=== PATIENT | female | born 1975 | race African-American/Black ===

== ENCOUNTER 2021-07-13 18:27 | Inpatient (IN) ==
[2021-07-13] MEDS ORDERED: ONDANSETRON 4 MG/2 ML VIAL ONE (19:19)
[2021-07-13] MEDS ORDERED: MORPHINE 2 MG/1 ML SYRINGE ONE (19:19)
[2021-07-13 19:21] LABS: Bilirubin,Urine Negative (Negative); Blood, Urine Small mg/dL (Negative); Glucose,Urine (UA) Negative (Negative); Ketones,Urine Negative (Negative); Mucus,Urine Many /LPF (Occasional); Nitrite,Urine Negative (Negative); Protein,Urine 30 MG/DL; RBC,Urine 8 /HPF (0-4); Squamous Epithelial Cell,Urine Occasional /HPF (0-10); Urine Appearance CLEAR (Clear); Urine Color Yellow (Yellow); Urine Specific Gravity 1.028 (1.001-1.035); Urine Urobilinogen < 2.0 EU/DL (0.2-1.0)
[2021-07-13] MEDS ORDERED: SODIUM CHLORIDE 0.9% 1,000 ML IV STA (19:22)
[2021-07-13] MEDS ORDERED: ONDANSETRON 4 MG/2 ML VIAL IV STA (19:22)
[2021-07-13] MEDS ORDERED: MORPHINE 2 MG/1 ML SYRINGE IV STA ×2 (19:22→20:05)
[2021-07-13 19:25] LABS: Basophils # 0.1 10*3/uL (0.0-0.2); Basophils % 0.2 % (0.0-0.8); Hematocrit 41.2 VOL% (35.7-47.0); Hemoglobin 13.3 GM/DL (12.0-16.0); Immature Granulocytes % 0.5 %; Immature Granulocytes Absolute 0.13 #; Lymphocytes # 2.2 10*3/uL (1.4-4.0); Lymphocytes % 8.4 % (21.3-54.2); Mean Corpuscular HGB Conc 32.3 GM/DL (32-36); Mean Corpuscular Volume 90.5 FL (87-102); Monocytes % 7.4 % (1.7-12.7); Neutrophils % 83.5 % (38.7-73.9); Platelet Count 242 T/CUMM (130-400); Red Blood Count 4.55 MC/CUMM (3.8-5.5); Red Cell Distribution Width 12.6 % (9.3-17.3); White Blood Count 25.9 T/CUMM (4-12)
[2021-07-13 19:45] LABS: Albumin 4.1 G/DL (3.4-5.0); Bilirubin,Total 0.9 MG/DL (0.20-1.00); Calcium 9.5 MG/DL (8.5-10.1); Osmolality,Calculated 273.8 MOS/KG (273-304); Potassium 3.4 MMOL/L (3.5-5.1); Total Protein 8.5 G/DL (6.4-8.2)
[2021-07-13] MEDS ORDERED: PIPERACILLIN/TAZOBACTAM 3,375 MG in SODIUM CHLORIDE 0.9% 100 ML IV STA (19:46)
[2021-07-13] MEDS ORDERED: HYDROmorphone 2 MG/1 ML VIAL IV ONE (21:25)
[2021-07-13] MEDS ORDERED: HYDROmorphone 2 MG/1 ML VIAL IV PRN (21:27)
[2021-07-13] MEDS ORDERED: ACETAMINOPHEN 325 MG TABLET PO PRN (21:27)
[2021-07-13] MEDS ORDERED: ONDANSETRON 4 MG/2 ML VIAL IV PRN (21:27)
[2021-07-13 21:56] LABS: Band Neutrophils 1 % (0-10); Lymphocytes 6 % (20-55); Platelet Estimate Normal; Segmented Neutrophils 88 % (50-85); Total Cells Counted 100
[2021-07-13] MEDS ORDERED: INFLUENZA VIRUS VACCINE 0.5 ML SYRINGE IM ONE (22:28)
[2021-07-13] MEDS: PIPERACILLIN/TAZOBACTAM 3,375 MG in SODIUM CHLORIDE 0.9% 100 ML IV SCH (22:30)
[2021-07-13] MEDS: LACTATED RINGERS 1,000 ML IV SCH (22:49)
[2021-07-14] MEDS: PIPERACILLIN/TAZOBACTAM 3,375 MG in SODIUM CHLORIDE 0.9% 100 ML IV SCH ×3 (05:30→21:11)
[2021-07-14 07:01] LABS: Basophils % 0.2 % (0.0-0.8); Eosinophils % 0.1 % (0.00-10.9); Hematocrit 36.4 VOL% (35.7-47.0); Hemoglobin 11.7 GM/DL (12.0-16.0); Immature Granulocytes % 0.5 %; Lymphocytes % 10.3 % (21.3-54.2); Mean Corpuscular HGB Conc 32.1 GM/DL (32-36); Mean Corpuscular Volume 93.3 FL (87-102); Mean Platelet Volume 11.8 FL (9.6-12.0); Monocytes % 7.8 % (1.7-12.7); Neutrophils % 81.1 % (38.7-73.9); Platelet Count 199 T/CUMM (130-400); Red Cell Distribution Width 12.7 % (9.3-17.3); White Blood Count 19.1 T/CUMM (4-12)
[2021-07-14 07:21] LABS: Calcium 8.4 MG/DL (8.5-10.1); Osmolality,Calculated 277.4 MOS/KG (273-304); Potassium 3.4 MMOL/L (3.5-5.1)
[2021-07-14] MEDS ORDERED: ONDANSETRON 4 MG/2 ML VIAL ONE (07:49)
[2021-07-14] MEDS ORDERED: MIDAZOLAM 2 MG/2 ML VIAL ONE (07:49)
[2021-07-14] MEDS ORDERED: LIDOCAINE 2% 5 ML VIAL ONE (07:49)
[2021-07-14] MEDS ORDERED: propofoL 200 MG/20 ML VIAL IV ONE (07:49)
[2021-07-14] MEDS ORDERED: fentaNYL 100 MCG/2 ML VIAL ONE ×2 (07:49→09:35)
[2021-07-14] MEDS ORDERED: ROCURONIUM 50 MG/5 ML VIAL IV ONE (07:49)
[2021-07-14] MEDS ORDERED: BUPIVACAINE MPF 0.25% 30 ML VIAL ONE (07:52)
[2021-07-14] MEDS ORDERED: TISSUE ADHESIVE 1 EACH APPLICATOR TOP ONE (07:52)
[2021-07-14] MEDS ORDERED: LIDOCAINE 1%/EPI INJ 20 ML VIAL ONE (07:52)
[2021-07-14] MEDS ORDERED: FAMOTIDINE 20 MG/2 ML VIAL IV ONE (07:55)
[2021-07-14] MEDS ORDERED: SCOPOLAMINE 1.5 MG PATCH TRANSDERM ONE (08:28)
[2021-07-14] MEDS ORDERED: METOCLOPRAMIDE 10 MG/2 ML VIAL ONE (08:47)
[2021-07-14] MEDS ORDERED: PHENYLEPHRINE 1 MG/10 ML SYRINGE IV ONE (08:48)
[2021-07-14] MEDS ORDERED: ACETAMINOPHEN INJ 1,000 MG/100 ML VIAL IV ONE (08:48)
[2021-07-14] MEDS ORDERED: DEXAMETHASONE 4 MG/1 ML VIAL ONE (08:48)
[2021-07-14] MEDS ORDERED: KETOROLAC 30 MG/1 ML VIAL ONE (08:48)
[2021-07-14] MEDS ORDERED: SUGAMMADEX 200 MG/2 ML VIAL IV ONE (08:53)
[2021-07-14] MEDS ORDERED: SEVOFLURANE 1 UNIT/15 MINUTE INH ONE (09:21)
[2021-07-14] MEDS ORDERED: BISACODYL 5 MG TABLET PO PRN (11:51)
[2021-07-14] MEDS: PANTOPRAZOLE 40 MG TABLET PO SCH (12:32)
[2021-07-14] MEDS: LACTATED RINGERS 1,000 ML IV SCH (12:36)
[2021-07-14] MEDS: ONDANSETRON 4 MG/2 ML VIAL IV PRN ×2 (13:10→17:06)
[2021-07-14] MEDS: KETOROLAC 15 MG/1 ML VIAL IV PRN (16:41)
[2021-07-14] MEDS: HYDROmorphone 2 MG/1 ML VIAL IV PRN (21:12)
[2021-07-14] MEDS: diphenhydrAMINE CAP 25 MG CAPSULE PO SCH (22:03)
[2021-07-15] MEDS: LACTATED RINGERS 1,000 ML IV SCH ×3 (00:10→18:46)
[2021-07-15] MEDS: ONDANSETRON 4 MG/2 ML VIAL IV PRN ×3 (02:00→13:36)
[2021-07-15] MEDS: KETOROLAC 15 MG/1 ML VIAL IV PRN ×3 (02:41→18:19)
[2021-07-15 05:35] LABS: Basophils % 0.1 % (0.0-0.8); Eosinophils % 0.1 % (0.00-10.9); Hematocrit 31.2 VOL% (35.7-47.0); Hemoglobin 9.9 GM/DL (12.0-16.0); Immature Granulocytes % 0.9 %; Immature Granulocytes Absolute 0.19 #; Lymphocytes # 2.2 10*3/uL (1.4-4.0); Lymphocytes % 10.6 % (21.3-54.2); Mean Corpuscular HGB Conc 31.7 GM/DL (32-36); Mean Corpuscular Volume 92.3 FL (87-102); Mean Platelet Volume 12.1 FL (9.6-12.0); Monocytes % 7.8 % (1.7-12.7); Neutrophils % 80.5 % (38.7-73.9); Platelet Count 176 T/CUMM (130-400); Red Blood Count 3.38 MC/CUMM (3.8-5.5); Red Cell Distribution Width 12.5 % (9.3-17.3); White Blood Count 20.8 T/CUMM (4-12)
[2021-07-15 05:50] LABS: Calcium 8.3 MG/DL (8.5-10.1); Osmolality,Calculated 283.1 MOS/KG (273-304); Potassium 3.4 MMOL/L (3.5-5.1)
[2021-07-15 05:58] LABS: Hypochromasia Slight; Lymphocytes 6 % (20-55); Nucleated Red Blood Cells 1 (0-5); Platelet Estimate Normal; Segmented Neutrophils 91 % (50-85); Total Cells Counted 100
[2021-07-15] MEDS: HYDROmorphone 2 MG/1 ML VIAL IV PRN ×3 (06:04→20:45)
[2021-07-15] MEDS: PIPERACILLIN/TAZOBACTAM 3,375 MG in SODIUM CHLORIDE 0.9% 100 ML IV SCH ×3 (06:05→20:45)
[2021-07-15] MEDS: PANTOPRAZOLE 40 MG TABLET PO SCH (08:56)
[2021-07-15] MEDS ORDERED: POTASSIUM CHLORIDE 20 MEQ TABLET PO ONE (11:00)
[2021-07-15] MEDS ORDERED: LOSARTAN 25 MG TABLET PO SCH (12:00)
[2021-07-15] MEDS ORDERED: hydroCHLOROthiazide 12.5 MG CAPSULE PO SCH (12:00)
[2021-07-15] MEDS ORDERED: PROMETHAZINE 25 MG TABLET PO ONE (17:26)
[2021-07-15] MEDS: diphenhydrAMINE CAP 25 MG CAPSULE PO SCH (20:36)
[2021-07-16] MEDS: LACTATED RINGERS 1,000 ML IV SCH (00:50)
[2021-07-16] MEDS: KETOROLAC 15 MG/1 ML VIAL IV PRN ×2 (03:06→09:46)
[2021-07-16] MEDS: ONDANSETRON 4 MG/2 ML VIAL IV PRN (03:11)
[2021-07-16 05:16] LABS: Basophils % 0.2 % (0.0-0.8); Eosinophils # 0.1 10*3/uL (0.0-0.87); Eosinophils % 0.9 % (0.00-10.9); Hematocrit 31.8 VOL% (35.7-47.0); Hemoglobin 10.3 GM/DL (12.0-16.0); Immature Granulocytes % 0.5 %; Immature Granulocytes Absolute 0.06 #; Lymphocytes # 2.3 10*3/uL (1.4-4.0); Lymphocytes % 17.8 % (21.3-54.2); Mean Corpuscular HGB Conc 32.4 GM/DL (32-36); Mean Corpuscular Volume 91.9 FL (87-102); Mean Platelet Volume 12.2 FL (9.6-12.0); Monocytes % 8.6 % (1.7-12.7); Platelet Count 198 T/CUMM (130-400); Red Blood Count 3.46 MC/CUMM (3.8-5.5); Red Cell Distribution Width 12.6 % (9.3-17.3); White Blood Count 13.1 T/CUMM (4-12)
[2021-07-16] MEDS: PIPERACILLIN/TAZOBACTAM 3,375 MG in SODIUM CHLORIDE 0.9% 100 ML IV SCH (05:23)
[2021-07-16] MEDS: HYDROmorphone 2 MG/1 ML VIAL IV PRN (06:31)
[2021-07-16] MEDS: PANTOPRAZOLE 40 MG TABLET PO SCH (09:46)
[2021-07-16 10:38] VITALS: BP 108/58
== END 2021-07-16 11:38 | disposition home or self-care (01) | DRG 343 ==
LOC: N.ED 18:27 → N.EDINP 18:27 → N.5E 23:01
PROVIDERS: ADMIT Surgery; ATTEND Surgery

== ENCOUNTER 2022-06-19 16:39 | Observation (INO) ==
[2022-06-19 17:08] LABS: Basophils # 0.1 10*3/uL (0.0-0.2); Basophils % 0.3 % (0.0-0.8); Eosinophils # 0.1 10*3/uL (0.0-0.87); Eosinophils % 0.6 % (0.00-10.9); Hematocrit 39.7 VOL% (35.7-47.0); Hemoglobin 12.8 GM/DL (12.0-16.0); Immature Granulocytes % 0.3 %; Immature Granulocytes Absolute 0.05 #; Lymphocytes # 3.2 10*3/uL (1.4-4.0); Lymphocytes % 21.7 % (21.3-54.2); Mean Corpuscular HGB Conc 32.2 GM/DL (32-36); Mean Corpuscular Volume 92.5 FL (87-102); Mean Platelet Volume 11.1 FL (9.6-12.0); Monocytes % 6.7 % (1.7-12.7); Neutrophils % 70.4 % (38.7-73.9); Platelet Count 264 T/CUMM (130-400); Red Blood Count 4.29 MC/CUMM (3.8-5.5); White Blood Count 14.7 T/CUMM (4-12)
[2022-06-19 17:23] LABS: Albumin 4.1 G/DL (3.4-5.0); Bilirubin,Total 0.4 MG/DL (0.20-1.00); Calcium 9.1 MG/DL (8.5-10.1); Osmolality,Calculated 285.4 MOS/KG (273-304); Total Protein 7.8 G/DL (6.4-8.2)
[2022-06-19 19:43] LABS: Platelet Estimate Normal
[2022-06-20] MEDS ORDERED: MORPHINE 2 MG/1 ML SYRINGE IV STA (00:53)
[2022-06-20] MEDS ORDERED: hydrALAZINE 20 MG/1 ML VIAL IV PRN (00:54)
[2022-06-20] MEDS ORDERED: MORPHINE 2 MG/1 ML SYRINGE IV PRN (00:54)
[2022-06-20] MEDS ORDERED: ZALEPLON 5 MG CAPSULE PO PRN (00:54)
[2022-06-20] MEDS ORDERED: ACETAMINOPHEN 325 MG TABLET PO PRN (00:54)
[2022-06-20] MEDS ORDERED: ALBUTEROL/IPRATROPIUM 3 ML NEB RESP TX PRN (00:54)
[2022-06-20] MEDS ORDERED: ONDANSETRON 4 MG/2 ML VIAL IV PRN (00:54)
[2022-06-20] MEDS ORDERED: guaiFENesin/DM ER 600-30 MG TABLET PO PRN (00:54)
[2022-06-20] MEDS ORDERED: PANTOPRAZOLE 40 MG VIAL IV STA (00:57)
[2022-06-20] MEDS: DEXTROSE 5% NACL 0.9% 1,000 ML IV SCH ×2 (01:18→17:04)
[2022-06-20] MEDS ORDERED: INFLUENZA VIRUS VACCINE 0.5 ML SYRINGE IM ONE (01:55)
[2022-06-20 02:27] LABS: Basophils # 0.1 10*3/uL (0.0-0.2); Basophils % 0.4 % (0.0-0.8); Eosinophils # 0.1 10*3/uL (0.0-0.87); Eosinophils % 0.6 % (0.00-10.9); Hematocrit 38.9 VOL% (35.7-47.0); Hemoglobin 12.3 GM/DL (12.0-16.0); Immature Granulocytes % 0.3 %; Immature Granulocytes Absolute 0.04 #; Lymphocytes # 3.6 10*3/uL (1.4-4.0); Lymphocytes % 28.4 % (21.3-54.2); Mean Corpuscular HGB Conc 31.6 GM/DL (32-36); Mean Corpuscular Volume 94.4 FL (87-102); Mean Platelet Volume 11.4 FL (9.6-12.0); Monocytes # 1.1 10*3/uL (0.11-0.8); Neutrophils % 61.3 % (38.7-73.9); Platelet Count 237 T/CUMM (130-400); Red Blood Count 4.12 MC/CUMM (3.8-5.5); White Blood Count 12.7 T/CUMM (4-12)
[2022-06-20 02:46] LABS: Calcium 9.2 MG/DL (8.5-10.1); Osmolality,Calculated 283.4 MOS/KG (273-304); Potassium 3.8 MMOL/L (3.5-5.1)
[2022-06-20] MEDS: PANTOPRAZOLE 40 MG TABLET PO SCH (09:41)
[2022-06-20] MEDS: ASPIRIN EC 81 MG TABLET PO SCH (09:41)
[2022-06-20] MEDS: HEPARIN 5,000 UNIT/1 ML VIAL SUBCUT SCH ×2 (09:42→20:32)
[2022-06-20] MEDS: LOSARTAN 25 MG TABLET PO SCH (12:16)
[2022-06-21 05:05] LABS: Basophils % 0.4 % (0.0-0.8); Eosinophils # 0.1 10*3/uL (0.0-0.87); Eosinophils % 1.4 % (0.00-10.9); Hematocrit 35.9 VOL% (35.7-47.0); Hemoglobin 11.3 GM/DL (12.0-16.0); Immature Granulocytes % 0.3 %; Immature Granulocytes Absolute 0.02 #; Lymphocytes # 2.9 10*3/uL (1.4-4.0); Lymphocytes % 37.8 % (21.3-54.2); Mean Corpuscular HGB Conc 31.5 GM/DL (32-36); Mean Corpuscular Volume 95.7 FL (87-102); Mean Platelet Volume 11.6 FL (9.6-12.0); Monocytes # 0.7 10*3/uL (0.11-0.8); Monocytes % 8.6 % (1.7-12.7); Neutrophils % 51.5 % (38.7-73.9); Platelet Count 198 T/CUMM (130-400); Red Blood Count 3.75 MC/CUMM (3.8-5.5); Red Cell Distribution Width 12.8 % (9.3-17.3); White Blood Count 7.7 T/CUMM (4-12)
[2022-06-21 05:33] LABS: Calcium 8.2 MG/DL (8.5-10.1); Osmolality,Calculated 288.8 MOS/KG (273-304); Potassium 4.1 MMOL/L (3.5-5.1)
[2022-06-21] MEDS: PANTOPRAZOLE 40 MG TABLET PO SCH (08:54)
[2022-06-21] MEDS: ASPIRIN EC 81 MG TABLET PO SCH (08:54)
[2022-06-21] MEDS: HEPARIN 5,000 UNIT/1 ML VIAL SUBCUT SCH ×2 (08:56→20:37)
[2022-06-21] MEDS: DEXTROSE 5% NACL 0.9% 1,000 ML IV SCH ×2 (10:09→12:16)
[2022-06-21] MEDS: LOSARTAN 25 MG TABLET PO SCH (12:07)
[2022-06-22 05:52] LABS: Basophils % 0.2 % (0.0-0.8); Eosinophils # 0.1 10*3/uL (0.0-0.87); Eosinophils % 1.5 % (0.00-10.9); Hematocrit 39.6 VOL% (35.7-47.0); Hemoglobin 12.5 GM/DL (12.0-16.0); Immature Granulocytes % 0.4 %; Immature Granulocytes Absolute 0.03 #; Lymphocytes # 2.9 10*3/uL (1.4-4.0); Mean Corpuscular HGB Conc 31.6 GM/DL (32-36); Mean Corpuscular Volume 93.6 FL (87-102); Mean Platelet Volume 11.7 FL (9.6-12.0); Monocytes # 0.6 10*3/uL (0.11-0.8); Monocytes % 6.7 % (1.7-12.7); Neutrophils % 57.2 % (38.7-73.9); Platelet Count 215 T/CUMM (130-400); Red Blood Count 4.23 MC/CUMM (3.8-5.5); Red Cell Distribution Width 12.6 % (9.3-17.3); White Blood Count 8.4 T/CUMM (4-12)
[2022-06-22 06:19] LABS: Calcium 9.3 MG/DL (8.5-10.1); Osmolality,Calculated 284.1 MOS/KG (273-304); Potassium 4.2 MMOL/L (3.5-5.1)
[2022-06-22 06:21] LABS: Risk Ratio 3.1; VLDL Cholesterol 13.8 MG/DL
[2022-06-22] MEDS: ASPIRIN EC 81 MG TABLET PO SCH (09:57)
[2022-06-22] MEDS: PANTOPRAZOLE 40 MG TABLET PO SCH (09:58)
[2022-06-22] MEDS: HEPARIN 5,000 UNIT/1 ML VIAL SUBCUT SCH (09:58)
[2022-06-22 11:31] VITALS: BP 119/80
[2022-06-22] MEDS: LOSARTAN 25 MG TABLET PO SCH (12:23)
== END 2022-06-22 12:45 | disposition home or self-care (01) ==
LOC: N.ED 16:39 → N.EDINP 16:39 → SUATTDRO 06-20 00:54 → N.TELEN 06-20 01:25
PROVIDERS: ADMIT Hospitalist; ATTEND Internal Medicine